=== PATIENT | female | born 1990 | race Hispanic/Latino ===

== ENCOUNTER 2017-08-19 19:01 | Emergency (ER) | payer MEDICAID ==
[2017-08-19] MEDS ORDERED: ACETAMINOPHEN 325 MG TAB ONE (19:33)
[2017-08-19] MEDS ORDERED: SODIUM CHLORIDE 0.9% 1000ML 1,000 ML IV ONE (19:34)
[2017-08-19 19:55] LABS: APPEARANCE,URINE Clear (CLEAR); BILIRUBIN,URINE Negative (NEGATIVE); COLOR,URINE Yellow (YELLOW); GLUCOSE, URINE (UA) Negative (NEGATIVE); KETONES,URINE 15 mg/dL (NEGATIVE); LEUKOCYTE ESTERASE ,URINE Negative (NEGATIVE); NITRATE,URINE Negative (NEGATIVE); OCCULT BLOOD,URINE Negative (NEGATIVE); PH,URINE 7.5 (5.0-8.0); PROTEIN,URINE Negative (NEGATIVE)
== END 2017-08-19 21:34 | disposition home or self-care (01) ==
LOC: EDH 19:01
DX: O26.891 Other specified pregnancy related conditions, first trimester (principal); B34.9 Viral infection, unspecified; Z3A.16 16 weeks gestation of pregnancy
CPT/HCPCS: 81003; 87804 ×2; 96360; 99285; J7030

== ENCOUNTER 2021-04-04 11:43 | Emergency (ER) | payer MEDICAID, OTHER ==
[~2021-04-04] VITALS: Ht 160 cm; Wt 68.0 kg
[2021-04-04 11:43] VITALS: BP 155/83
[2021-04-04] MEDS ORDERED: DIPH25 PO (12:52)
[2021-04-04] MEDS ORDERED: FAMO20TA8 PO (12:52)
[2021-04-04] MEDS ORDERED: DIPHENHYDRAMINE HCL 25 MG CAPSULE PO ONE (13:00)
[2021-04-04] MEDS ORDERED: FAMOTIDINE 20MG TAB PO ONE (13:00)
== END 2021-04-04 13:11 | disposition home or self-care (01) ==
LOC: EDH 11:43
DX: T78.49XA Other allergy, initial encounter (principal); F41.9 Anxiety disorder, unspecified; X58.XXXA Exposure to other specified factors, initial encounter
CPT/HCPCS: 71045; 81025

== ENCOUNTER 2021-04-09 22:33 | Emergency (ER) | payer SELFPAY ==
[~2021-04-09] VITALS: Ht 160 cm; Wt 68.0 kg
[~2021-04-09 22:33] MED LIST: DIPH25 PO; FAMO20TA8 PO
[2021-04-09 22:54] VITALS: BP 150/88
[2021-04-09] MEDS ORDERED: DEXAMETHASONE SOD PHOSPHATE 4 MG/ML 1ML VIAL ONE (22:59)
[2021-04-09] MEDS ORDERED: DEXAMETHASONE SOD PHOSPHATE 4 MG/ML 1ML VIAL IM SCH (23:00)
[2021-04-09 23:03] LABS: BASOPHILS % (AUTO) 0.3 % (0.0-5.0); EOSINOPHILS % (AUTO) 1.7 % (0.0-8.0); HEMATOCRIT 34.5 % (36-48); LYMPHOCYTES % (AUTO) 40.6 % (21.0-51.0); MEAN CORPUSCULAR HEMOGLOBIN 25.9 pg (27.0-33.0); MEAN CORPUSCULAR HGB CONC 31.9 g/dL (32.0-36.0); MEAN CORPUSCULAR VOLUME 81.2 fL (79-99); MONOCYTES % (AUTO) 6.5 % (3.0-13.0); NEUTROPHILS % (AUTO) 50.7 % (40.0-77.0); PLATELET COUNT (AUTO) 322 K/uL (130-400); RED BLOOD CELL COUNT(AUTO) 4.25 MIL/uL (4.00-5.50); RED CELL DISTRIBUTION WIDTH 14.5 % (11.0-15.5); WHITE BLOOD COUNT (AUTO) 9.2 K/uL (4.8-10.8)
[2021-04-09 23:07] LABS: APPEARANCE,URINE Clear (CLEAR); BILIRUBIN,URINE Negative (NEGATIVE); COLOR,URINE Yellow (YELLOW); GLUCOSE, URINE (UA) Negative (NEGATIVE); KETONES,URINE Negative (NEGATIVE); LEUKOCYTE ESTERASE ,URINE Negative (NEGATIVE); NITRATE,URINE Negative (NEGATIVE); OCCULT BLOOD,URINE Negative (NEGATIVE); PROTEIN,URINE Negative (NEGATIVE)
[2021-04-09 23:09] LABS: HCG,QUAL RESULT NEGATIVE (NEGATIVE)
[2021-04-09 23:11] LABS: CREATININE 0.7 mg/dL (0.5-1.5); POTASSIUM 3.3 mmol/L (3.5-5.1)
[2021-04-09 23:16] LABS: ALBUMIN 3.9 g/dL (3.5-5.0); BILIRUBIN,TOTAL 0.3 mg/dL (0.2-1.0); TOTAL PROTEIN, SERUM 7.7 g/dL (6.0-8.3)
[2021-04-09] MEDS ORDERED: MAG/ALUM/SIMETH 30 ML UDCUP ONE (23:46)
[2021-04-09] MEDS ORDERED: DICYCLOMINE HCL 10 MG/5 ML ML PO ONE (23:47)
[2021-04-09] MEDS ORDERED: LIDOCAINE HCL 2% VISCOUS 15 ML UDCUP ONE (23:47)
[2021-04-10] MEDS ORDERED: HYDR-3421 PO
[2021-04-10] MEDS ORDERED: MAG/ALUM/SIMETH 30 ML UDCUP PO ONE
[2021-04-10] MEDS ORDERED: FAMO10TA39 PO
[2021-04-10] MEDS ORDERED: METH4TAB3 PO
== END 2021-04-10 00:10 | disposition home or self-care (01) ==
LOC: EDH 22:33
DX: T78.40XA Allergy, unspecified, initial encounter (principal); F41.9 Anxiety disorder, unspecified; Z79.899 Other long term (current) drug therapy; X58.XXXA Exposure to other specified factors, initial encounter
CPT/HCPCS: 36415; 80053; 81003; 81025; 85025; 96372; 99283; J1100